=== PATIENT | female | born 1960 | race Caucasian/White ===

== ENCOUNTER 2017-04-22 11:07 | Emergency (ER) | payer BC ==
--- NOTE | 2017-04-22 11:43 | UC ---
Shoulder Pain HPI - HPI Summary HPI Summary: Per treating plant operator "pain in the right shoulder started last night. she could not sleep well. she states she developed arm and middle back pain. she states she feels like she has a tournique on her right arm. she had a stiff neck for the previous 3 days. She denies any known injury." No relief with tramadol 100 mgs given at 08:30. pain is > 10/10. Denies SOB. Mom with CAD. + HTN and lipids. non-smoker. no DM Here with her . - History of Current Complaint Chief Complaint: UCBackPain Stated Complaint: RIGHT SHOULDER PAIN Time Seen by Provider: 04/22/17 11:39 - Allergies/Home Medications Allergies/Adverse Reactions: Allergies Allergy/AdvReac Type Severity Reaction Status Date / Time No Known Allergies Allergy Verified 04/22/17 11:48 Home Medications: Home Medications Bp Med 1 dose PO ONCE 04/22/17 [History Confirmed 04/22/17] Diuretic 1 dose PO ONCE 04/22/17 [History Confirmed 04/22/17] Muscle Relaxer 1 dose PO ONCE 04/22/17 [History Confirmed 04/22/17] traMADol TAB* [Ultram*] 100 mg PO ONCE PRN 04/22/17 [History Confirmed 04/22/17] PMH/Surg Hx/FS Hx/Imm Hx Endocrine History: Dyslipidemia Cardiovascular History: Hypertension - Surgical History Surgical History: Yes Surgery Procedure, Year, and Place: C4,5 and 6 ACDF 1994 [facility]. BONE SPUR EXC L SHOULDER 1994. WISDOM TEETH REMOVAL A TEEN. March--R KNEE MENISCUS REPAIR - Family History Known Family History: Positive: Cardiac Disease - Social History Alcohol Use: Rare Substance Use Type: None Smoking Status (MU): Never Smoked Tobacco - Immunization History Most Recent Influenza Vaccination: no Review of Systems Constitutional: Negative Skin: Negative Eyes: Negative ENT: Negative Respiratory: Negative Cardiovascular: Negative Gastrointestinal: Negative Genitourinary: Negative Motor: Negative Neurovascular: Negative Musculoskeletal: Other: - rt thoracic back pain, rt arm pain Neurological: Negative Psychological: Negative All Other Systems Reviewed And Are Negative: Yes Physical Exam Triage Information Reviewed: Yes Appearance: Well-Appearing, Pain Distress - sitting fwd and appears uncomfortable. both very pleasant Vital Signs: Initial Vital Signs Temp 96.7 F 07/23/17 11:32 Pulse 60 04/22/17 11:32 Resp 24 04/22/17 11:32 BP 103/83 04/22/17 11:32 Pulse Ox 97 04/22/17 11:32 Eye Exam: Normal - Rpt manual BP nml ENT Exam: Normal ENT: Positive: Pharynx normal, TMs normal Neck exam: Normal Respiratory Exam: Normal Respiratory: Positive: Lungs clear, Normal breath sounds, No respiratory distress, No accessory muscle use Cardiovascular Exam: Normal Cardiovascular: Positive: RRR, No Murmur, Pulses Normal, Brisk Capillary Refill Abdomen Description: Positive: Nontender, Soft Musculoskeletal: Positive: Other: - rt thoracic back medial to scapula with tenderness and spasms. rt arm tender and limited ROM d/t pain. CR brisk, + 2 radial b/l amnd equal. Neurological Exam: Normal Neurological: Positive: Alert, Muscle Tone Normal Psychological Exam: Normal Skin Exam: Normal Shoulder Course/Dx - Course Course Of Treatment: EKG done shows sinus ramana in high 50s with LBBB. no previous EKG available to compare. there is a telm moniotr from 2015 that only shows lead II with abnml QRS complex that appears similar to today's ekg. They agree to Er for further eval r/o dissecting aneurysm, abnml EKG. They chose to drive to [place]. It is closer and preferred site b/c distance. - Differential Dx/Diagnosis Differential Diagnosis/HQI/PQRI: Sprain, Strain, Tendonitis Provider Diagnoses: Rt back pain, LBBB new, rt arm pain - Physician Notification/Consults Discussed Patient Care With: Dr Covington Time Discussed With Above Provider: 12:18 Discharge - Discharge Plan Condition: Fair Disposition: TRANS HIGHER L OF CARE FAC
[2017-04-22 12:02] VITALS: BP 132/66
== END 2017-04-22 12:23 | disposition short-term general hospital (02) ==
LOC: UCCORT 11:07
DX: M54.9 Dorsalgia, unspecified (principal); I44.7 Left bundle-branch block, unspecified; M79.601 Pain in right arm; I10 Essential (primary) hypertension; E78.5 Hyperlipidemia, unspecified
CPT/HCPCS: 99213; G0463